=== PATIENT | male | born 1975 | race Caucasian/White ===

== ENCOUNTER 2023-03-26 20:32 | Emergency (ER) | payer BC, MEDICAID ==
[~2023-03-26] VITALS: Ht 180.3 cm; Wt 136.1 kg
[2023-03-26] MEDS ORDERED: KETOROLAC TROMETHAMINE INJ 60 MG/2 ML VIAL IM ONE ×3 (21:47→22:00)
[2023-03-26] MEDS ORDERED: HYDR-3976 GT (22:25)
[2023-03-26] MEDS ORDERED: HYDR-3976 PO (22:38)
[2023-03-26 22:39] VITALS: BP 176/124; TEMP 98.8; O2SAT 97
== END 2023-03-26 22:40 | disposition home or self-care (01) ==
LOC: ER 20:47
DX: S82.62XA Displaced fracture of lateral malleolus of left fibula, initial encounter for closed fracture (principal); I10 Essential (primary) hypertension; W50.0XXA Accidental hit or strike by another person, initial encounter; Y93.61 Activity, american tackle football; Y92.89 Other specified places as the place of occurrence of the external cause; Y99.8 Other external cause status
CPT/HCPCS: 29515; 73610; 73630; 96372; 99284; J1885

== ENCOUNTER 2024-02-28 08:25 | Emergency (ER) | payer BC, OTHER ==
[~2024-02-28] VITALS: Ht 180.3 cm; Wt 142.9 kg
[~2024-02-28 08:25] MED LIST: HYDR-3976 PO
[2024-02-28 08:40] VITALS: BP 154/99; TEMP 98.4; O2SAT 97
[2024-02-28] MEDS ORDERED: VALA10002 PO (08:51)
[2024-02-28] MEDS ORDERED: PRED50TA PO (08:51)
[2024-02-28] MEDS ORDERED: predniSONE 20 MG TABLET ONE (08:52)
[2024-02-28] MEDS: predniSONE 20 MG TABLET PO ONE (09:05)
[2024-02-28] MEDS: VALACYCLOVIR HCL 500 MG TABLET PO ONE (09:05)
== END 2024-02-28 09:31 | disposition home or self-care (01) ==
LOC: ER 08:31
DX: B02.9 Zoster without complications (principal); R07.89 Other chest pain; I10 Essential (primary) hypertension; Z79.52 Long term (current) use of systemic steroids; Z79.624 Long term (current) use of inhibitors of nucleotide synthesis
CPT/HCPCS: 99283; 93005 ×2; J7512